=== PATIENT | female | born 1960 | race African-American/Black ===

== ENCOUNTER 2017-06-18 07:13 | Emergency (ER) | payer BC, OTHER ==
[~2017-06-18] VITALS: Ht 172.7 cm; Wt 90.5 kg
[~2017-06-18 07:13] MED LIST: NAPR-803 PO; [UNRECOGNIZED DRUG - REMARK]
[2017-06-18 07:33] VITALS: BP 182/80; PULSE 70; RESP 18; TEMP 98.9; O2SAT 99
[2017-06-18] MEDS ORDERED: BYST10TA2 PO (07:38)
[2017-06-18] MEDS ORDERED: IBUPROFEN 600 MG TAB PO ONE (08:15)
--- NOTE | 2017-06-18 08:46 | PD ---
HPI Chief Complaint: Pain: Acute or Chronic Time Seen by Provider: 07:58 Travel History International Travel<30 days: No Contact w/Intl Traveler<30days: No Traveled to known affect area: No History of Present Illness HPI Patient is a 57-year-old female who presents the emergency room with complaints of left leg sciatica as well as left leg calf tenderness. Patient reports that she has been working "alot" for the past few weeks and does lift/push heavy objects. Patient reports that she began to notice pain from her left buttocks rating down to her left leg. Patient reports that she has pain with ambulation but has resolution of pain when she rests. Patient reports no history of this in the past. Patient also endorses that she has noticed increased cramping to her left calf. Patient denies history of DVT or PE, patient denies any recent travels or trips. Patient denies any trauma to her left lower extremity. PFSH Past Medical History Cardiovascular Problems: Yes Diminished Hearing: No Hypertension: Yes Tetanus Vaccination: > 5 Years Influenza Vaccination: No : 4 Para: 4 Social History Alcohol Use: No Tobacco Use: No Substance Use: No Allergies-Medications (Allergen,Severity, Reaction): Coded Allergies: No Known Allergies (Verified Adverse Reaction, Unknown, 06/18/17) Reported Meds & Prescriptions Reported Meds & Active Scripts Active Reported Bystolic (Nebivolol) 10 Mg Tab 10 Mg PO DAILY Review of Systems General / Constitutional: No: Fever Eyes: No: Visual changes HENT: No: Headaches Cardiovascular: No: Chest Pain or Discomfort Respiratory: No: Shortness of Breath Gastrointestinal: No: Abdominal Pain Genitourinary: No: Dysuria Musculoskeletal: Positive: Cramping, Pain, No: Limited ROM Skin: No Rash Neurologic: No: Weakness Psychiatric: No: Depression Endocrine: No: Polydipsia Hematologic/Lymphatic: No: Easy Bruising Physical Exam Narrative GENERAL: Well-nourished, well-developed patient. SKIN: Focused skin assessment warm/dry. HEAD: Normocephalic. EYES: No scleral icterus. No injection or drainage. NECK: Supple, trachea midline. No JVD or lymphadenopathy. CARDIOVASCULAR: Regular rate and rhythm without murmurs, gallops, or rubs. RESPIRATORY: Breath sounds equal bilaterally. No accessory muscle use. GASTROINTESTINAL: Abdomen soft, non-tender, nondistended. MUSCULOSKELETAL: No cyanosis, or edema. Patient with left-sided calf tenderness , patient ambulating in the emergency room with normal gait. BACK: Nontender without obvious deformity. No CVA tenderness. Data Data Last Documented VS Vital Signs Date Time Temp Pulse Resp B/P (MAP) Pulse Ox O2 Delivery O2 Flow Rate FiO2 06/18/17 07:39 76 17 06/18/17 07:33 98.9 182/80 (114) 99 Orders Orders Us Leg Venous Doppler (06/18/17 ) Ibuprofen (Motrin) (06/18/17 08:15) MDM Medical Decision Making Medical Screen Exam Complete: Yes Emergency Medical Condition: Yes Medical Record Reviewed: Yes Interpretation(s) Vital Signs Date Time Temp Pulse Resp B/P (MAP) Pulse Ox O2 Delivery O2 Flow Rate FiO2 06/18/17 07:39 76 17 06/18/17 07:33 98.9 70 18 182/80 (114) 99 Differential Diagnosis Sciatica, DVT, muscle strain Narrative Course During the course of the patients emergency department visit, the patients history, examination, and differential diagnosis were reviewed with the patient. The patient was initially provided ibuprofen for pain Radiology studies were reviewed and remarkable for Last Impressions Lower Extremity Ultrasound 06/18/17 0000 Signed Impressions: Service Date/Time: Sunday, June 18, 2017 08:14 - CONCLUSION: 1. No DVT is identified within the left lower extremity. 2. There is a single mildly enlarged lymph node in the left inguinal region. Javi Lacy MD Patient with no evidence of DVT, she does have sciatic pain from her left lower extremity. Discussed with patient need for rest and NSAIDs, will have her follow-up with her primary care doctor. Patient understands need for repeat ultrasound of her lower extremity in 1 week if pain persists Diagnosis Primary Impression: Sciatica of left side Additional Impression: Leg cramping Patient Instructions: General Instructions Additional Instructions: Please provide patient with a copy of her study at discharge Please follow up with your primary care doctor in 2-3 days Return to the ER if symptoms worsen or progress Return to the ER as needed Please have an ultrasound of your leg repeated in 1 week if cramping persists Med/Other Pt SpecificInfo: Prescription(s) given Scripts Ibuprofen (Ibuprofen) 600 Mg Tab 600 MG PO Q6H Y for Pain/Inflammation, #40 TAB 0 Refills Prov: Shavonne Abreu DO 06/18/17 Disposition: 01 DISCHARGE HOME Condition: Stable Shavonne Abreu DO June 18, 2017 08:46
--- NOTE | 2017-06-18 09:02 | RADRPT ---
EXAM DATE/TIME: 06/18/2017 08:14 [facility] COMPARISON: No previous studies available for comparison. INDICATIONS : Left thigh pain x 3 days and left calf pain x 1 day. MEDICAL HISTORY : Hypertension. SURGICAL HISTORY : Right leg surgery. ENCOUNTER: Initial ACUITY: 3 days PAIN SCORE: 4/10 LOCATION: Left leg. TECHNIQUE: Venous ultrasound of the leg was performed from the inguinal ligament to the proximal calf. Real-ranjith e, color Doppler and spectral tracing, compression and augmentation techniques were used. FINDINGS: There is normal compressibility of the deep venous system from the inguinal region to the proximal ca lf. No echogenic clot is seen in the lumen of the common femoral, femoral, popliteal, and posterior tibial veins. There is a normal response of the venous system to proximal and distal augmentation an d respiration. There is a single mildly enlarged lymph node in the left inguinal region measuring 1.6 x 1.6 x 1.1 cm . CONCLUSION: 1. No DVT is identified within the left lower extremity. 2. There is a single mildly enlarged lymph node in the left inguinal region. Javi Lacy MD on June 18, 2017 at 8:58 Board Certified Radiologist. This report was verified electronically.
[2017-06-18] MEDS ORDERED: IBUP-232 PO (09:43)
== END 2017-06-18 10:16 | disposition home or self-care (01) ==
LOC: NEPC 07:13
DX: M54.32 Sciatica, left side (principal); M79.662 Pain in left lower leg
CPT/HCPCS: 93971; 99284